=== PATIENT | female | born 1970 | race Asian ===

== ENCOUNTER 2017-11-24 19:59 | Emergency (ER) | payer OTHER ==
--- NOTE | 2017-11-24 21:10 | EDPHY ---
H & P Smoking Status: Never smoked Time Seen by Provider: 11/24/17 20:09 HPI/ROS: CHIEF COMPLAINT: Head injury HISTORY OF PRESENT ILLNESS: 47-year-old female presents to the emergency department with a persisting left-sided facial pain after she hit the corner of her left eye on a door frame for have days ago. The patient denies loss of consciousness however she felt a bit dazed after happen which persisted most the day. Over last 4 days she has had an ongoing headache. She takes ibuprofen with relief. She also states that she still having difficulty focusing. She has local pain to the lateral aspect of her left eye where she hit. No nausea or vomiting. No neck pain. No visual symptoms. No chest pain or difficulty breathing. No abdominal pain. REVIEW OF SYSTEMS: Constitutional: No fever, no chills. Eyes: No double or blurry vision. ENT: No sore throat. Respiratory: No cough, no shortness of breath. Cardiac: No chest pain. Gastrointestinal: No abdominal pain, vomiting or diarrhea. Genitourinary: No dysuria. Musculoskeletal: No neck or back pain. Skin: No rashes. Neurological: headache. (Lise,Carina M) Past Medical/Surgical History: Negative (Lise,Carina M) Social History: (Lise,Carina M) Physical Exam: General Appearance: Alert, no distress. Mentating normally and answering questions appropriately. No visible signs of trauma to her head. Eyes: Pupils equal and round. Extraocular motions are all intact. Reproducible pain with palpation over the left superior lateral orbit. No palpable crepitus or other bony abnormality. No ecchymosis. No swelling. ENT: Mouth: Mucous membranes moist. No dental injury or malocclusion. Respiratory: No wheezing, rhonchi, or rales, lungs are clear to auscultation. Cardiovascular: Regular rate and rhythm. Gastrointestinal: Abdomen is soft and nontender, no masses, no rebound or guarding, bowel sounds normal. Neurological: Alert and oriented x 3, cranial nerves II through XII grossly intact Skin: Warm and dry, no rashes. Musculoskeletal: Nontender to palpate along the cervical, thoracic or lumbar spine. Neck is supple. Extremities: Full range of motion and no peripheral edema. Psychiatric: Patient is oriented X 3, there is no agitation. (Jasmine Lezamaa M) Constitutional: Initial Vital Signs Temperature (C) 36.7 C 11/24/17 20:07 Heart Rate 87 11/24/17 20:07 Respiratory Rate 16 11/24/17 20:07 Blood Pressure 116/67 11/24/17 20:07 O2 Sat (%) 98 11/24/17 20:07 O2 Delivery Mode Room Air Allergies/Adverse Reactions: phenobarbital [Phenobarbital] Allergy (Verified 04/21/09 21:10) Home Medications: Medication Instructions Recorded Ibuprofen 11/24/17 Valtrex 11/24/17 Medical Decision Making ED Course/Re-evaluation: 47-year-old female presents to the emergency department with persisting headache after hitting her head 4 half days ago. The patient has a normal neurologic examination. I did discuss the pros and cons of CT imaging of her brain including radiation exposure and she agrees with not obtaining CT scan. She will avoid any activity that might put her at risk for another head injury for at least 1 week. She was also advised to return to the emergency department she developed worsening headache, vomiting, altered mental status, or any other concerns. She was encouraged to have close follow-up with primary care provider and was also given referral to Dr. Lori Nielsen. (Carina Lezama) I did not see this patient while she was in the emergency department. However her care was discussed with the PA while the patient was in the department. I agree with treatment plan and management (Mike Hernandez) Differential Diagnosis: Head injury including but not limited to concussion, skull fracture, facial fracture, intraparenchymal contusion, subarachnoid, subdural and epidural hematoma. (KrystalCarina daniel) Departure - Departure Disposition: Home, Routine, Self-Care Clinical Impression: Concussion, Contusion of left eyebrow Condition: Good Instructions: Concussion (ED), Contusion in Adults (ED) Additional Instructions: Ibuprofen 600-800 mg 3 times daily as needed for pain with food. Activity as tolerated although avoid any activity that might put you at risk for another head injury for at least 1 week. Return to the emergency department if you developed worsening headache, vomiting , altered mental status, or if you feel worse in any way. Referrals: NEGAR NARAYANAN [Other] - 2-3 days without fail Lori Nielsen MD [Medical Doctor] - 5-7 days, if not improved
[2017-11-24 21:27] VITALS: BP 110/67
== END 2017-11-24 21:27 | disposition home or self-care (01) ==
DX: S06.0X9A Concussion with loss of consciousness of unspecified duration, initial encounter (principal); S00.12XA Contusion of left eyelid and periocular area, initial encounter; W22.8XXA Striking against or struck by other objects, initial encounter

== ENCOUNTER → 2018-01-15 | Outpatient (CLI) | payer OTHER | LOC: FIMAGING 12:33 | PROVIDERS: ATTEND Nurse Practitioner Family | DX: M79.675 Pain in left toe(s) (principal) ==